=== PATIENT | female | born 1975 | race African-American/Black ===

== ENCOUNTER 2018-04-11 16:29 | Emergency (ER) | payer OTHER ==
[~2018-04-11] VITALS: Ht 175.3 cm; Wt 94.1 kg
[2018-04-11 16:47] VITALS: BP 115/76
[2018-04-11] MEDS ORDERED: KETOROLAC 30 MG/1 ML ONE (18:29)
[2018-04-11] MEDS ORDERED: KETOROLAC 30 MG/1 ML IM ONE (18:30)
== END 2018-04-11 18:34 | disposition home or self-care (01) ==
LOC: ED 18:29
DX: S06.320A Contusion and laceration of left cerebrum without loss of consciousness, initial encounter (principal); G89.11 Acute pain due to trauma; M25.561 Pain in right knee; F17.200 Nicotine dependence, unspecified, uncomplicated; W01.0XXA Fall on same level from slipping, tripping and stumbling without subsequent striking against object, initial encounter; Y93.89 Activity, other specified; Y99.8 Other external cause status; Y92.828 Other wilderness area as the place of occurrence of the external cause
CPT/HCPCS: 70450; 73564; 93005; 96372; 99284; J1885